=== PATIENT | female | born 1990 | race Caucasian/White ===

== ENCOUNTER 2017-06-15 14:25 | Emergency (ER) | payer BC ==
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
--- NOTE | 2017-06-16 07:50 | Diagnostic Imaging Report ---
Pelvis and left hip 2 views Indication: Trauma Comparison: none Findings: Symmetric calcification is seen along the bilateral inferior pubic ramus regions probably developmental. Otherwise no evidence of an acute fracture or dislocation. The hip joints are preserved. Moderate amount of stool is noted. 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 Otherwise no evidence of acute fracture or dislocation. In the setting of trauma, if clinical symptoms persist and there is continued concern for an occult fracture, follow up exams in 5-7 days is suggested.
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
== END 2017-06-15 15:52 | disposition home or self-care (01) ==
LOC: ER 14:25
DX: S40.812A Abrasion of left upper arm, initial encounter (principal); S80.812A Abrasion, left lower leg, initial encounter; S30.810A Abrasion of lower back and pelvis, initial encounter; X58.XXXA Exposure to other specified factors, initial encounter; Y93.89 Activity, other specified; Y92.488 Other paved roadways as the place of occurrence of the external cause; Y99.8 Other external cause status
CPT/HCPCS: 99284; 96372; 73502; 73080; 73590; 81025; J1885; 73501; X7704; Z7502